=== PATIENT | female | born 2000 | race Two or more races ===

== ENCOUNTER → 2019-12-25 11:38 | Outpatient (CLI) | payer OTHER | END | disposition home or self-care (01) | LOC: LAB 11:38 | PROVIDERS: ATTEND Emergency Medicine Pediatric Emergency Medicine | DX: Z03.818 Encounter for observation for suspected exposure to other biological agents ruled out (principal) ==

== ENCOUNTER 2020-09-17 08:00 | Outpatient (CLI) | payer OTHER | END 2020-09-17 08:30 | disposition home or self-care (01) | LOC: PPH VACUNA 08:00 | DX: Z23 Encounter for immunization (principal) ==

== ENCOUNTER 2020-10-08 08:00 | Outpatient (CLI) | payer OTHER | END 2020-10-08 08:30 | disposition home or self-care (01) | LOC: PPH VACUNA 08:00 | DX: Z23 Encounter for immunization (principal) ==

== ENCOUNTER 2020-12-30 07:36 | Outpatient (CLI) | payer OTHER | END 2020-12-30 15:00 | disposition home or self-care (01) | LOC: LAB 07:36 | DX: I34.0 Nonrheumatic mitral (valve) insufficiency (principal); E55.9 Vitamin D deficiency, unspecified ==

== ENCOUNTER 2021-01-14 07:09 | Outpatient (CLI) | payer OTHER | END 2021-01-14 07:21 | disposition home or self-care (01) | LOC: LAB 07:09 | DX: I10 Essential (primary) hypertension (principal); Z13.6 Encounter for screening for cardiovascular disorders ==

== ENCOUNTER 2021-04-10 08:00 | Outpatient (CLI) | payer OTHER | END 2021-04-10 08:30 | disposition home or self-care (01) | LOC: PPH VACUNA 08:00 | PROVIDERS: ATTEND Emergency Medicine Pediatric Emergency Medicine | DX: Z23 Encounter for immunization (principal) ==